=== PATIENT | male | born 1965 | race Caucasian/White ===

== ENCOUNTER 2019-05-03 21:30 | Emergency (ER) | payer SELFPAY ==
[~2019-05-03] VITALS: Ht 172.7 cm; Wt 79.4 kg
[~2019-05-03 21:30] MED LIST: ASPI81CH PO; ATOR40TA PO; CLOP75 PO; METO50ER PO; Nicoderm Cq1 EAC1 TOP
[2019-05-03 22:00] LABS: BASOPHILS ABSOLUTE AUTO 0.07 K/mm3 (0.00-0.23); BASOPHILS PERCENT AUTO 1 % (0-2); EOSINOPHILS ABSOLUTE AUTO 0.21 K/mm3 (0.00-0.68); EOSINOPHILS PERCENT AUTO 2 % (0-6); Hematocrit 46.4 % (37.0-53.0); Hemoglobin 14.7 g/dL (13.5-17.5); IMMATURE GRAN ABSOLUTE AUTO 0.04 K/mm3 (0.00-0.10); IMMATURE GRAN PERCENT AUTO 0 % (0-1); LYMPHOCYTES ABSOLUTE AUTO 2.38 K/mm3 (0.84-5.20); LYMPHOCYTES PERCENT AUTO 21 % (21-46); MONOCYTES ABSOLUTE AUTO 0.77 K/mm3 (0.16-1.47); MONOCYTES PERCENT AUTO 7 % (4-13); Mean Corpuscular HGB Conc 31.7 g/dL (31.5-36.5); Mean Corpuscular Volume 92 fL (80-100); Mean Platelet Volume 11.3 fL (9.1-12.4); NEUTROPHILS ABSOLUTE AUTO 7.64 K/mm3 (1.96-9.15); NEUTROPHILS PERCENT AUTO 69 % (41-73); Platelet Count 242 K/mm3 (150-400); RDW Coefficient Variation 14.6 % (11.7-14.2); RDW Standard Deviation 48.7 fL (35.1-46.3); Red Blood Cell Count 5.07 M/mm3 (4.30-5.90); White Blood Cell Count 11.11 K/mm3 (4.00-11.30)
[2019-05-03 22:38] LABS: Alanine Aminotransfer (ALT/SGP 32 U/L (12-78); Albumin, Blood 3.6 g/dL (3.4-5.0); Albumin/Globulin Ratio 1.1 (0.8-1.8); Alk Phos 93 U/L (50-136); Anion Gap 5 mmol/L (6-16); Aspartate Aminotrans (AST/SGOT 21 U/L (12-37); Bilirubin, Total 0.2 mg/dL (0.1-1.0); Blood Urea Nitrogen 9 mg/dL (8-24); CO2, Blood 28 mmol/L (21-32); Chloride, Blood 109 mmol/L (98-108); Creatinine, Blood 0.75 mg/dL (0.60-1.20); Globulin, Blood 3.3 g/dL (2.2-4.0); Glomerular Filtration Rate >60 (60-); Glucose, Blood 129 mg/dL (70-99); Potassium, Blood 4.3 mmol/L (3.5-5.5); Sodium, Blood 142 mmol/L (136-145); Total Protein, Blood 6.9 g/dL (6.4-8.2)
== END 2019-05-03 23:30 | disposition home or self-care (01) ==
LOC: ER 21:30
PROVIDERS: Emergency Medicine
DX: R41.82 Altered mental status, unspecified (principal); R29.6 Repeated falls; F17.200 Nicotine dependence, unspecified, uncomplicated; Z86.73 Personal history of transient ischemic attack (TIA), and cerebral infarction without residual deficits; Z79.899 Other long term (current) drug therapy; Z79.82 Long term (current) use of aspirin; Z79.02 Long term (current) use of antithrombotics/antiplatelets
CPT/HCPCS: 70450; 80053; 85025; 93005; 93010; 99285-25

== ENCOUNTER 2019-05-10 16:50 | Emergency (ER) | payer MEDICAID ==
[~2019-05-10] VITALS: Ht 172.7 cm; Wt 77.1 kg
[2019-05-10 17:52] LABS: BASOPHILS ABSOLUTE AUTO 0.07 K/mm3 (0.00-0.23); BASOPHILS PERCENT AUTO 1 % (0-2); EOSINOPHILS ABSOLUTE AUTO 0.24 K/mm3 (0.00-0.68); EOSINOPHILS PERCENT AUTO 2 % (0-6); Hematocrit 43.9 % (37.0-53.0); Hemoglobin 14.4 g/dL (13.5-17.5); IMMATURE GRAN ABSOLUTE AUTO 0.06 K/mm3 (0.00-0.10); IMMATURE GRAN PERCENT AUTO 0 % (0-1); LYMPHOCYTES ABSOLUTE AUTO 2.98 K/mm3 (0.84-5.20); LYMPHOCYTES PERCENT AUTO 22 % (21-46); MONOCYTES ABSOLUTE AUTO 1.31 K/mm3 (0.16-1.47); MONOCYTES PERCENT AUTO 10 % (4-13); Mean Corpuscular HGB 29.5 pg (26.0-34.0); Mean Corpuscular HGB Conc 32.8 g/dL (31.5-36.5); Mean Corpuscular Volume 90 fL (80-100); Mean Platelet Volume 10.3 fL (9.1-12.4); NEUTROPHILS ABSOLUTE AUTO 9.08 K/mm3 (1.96-9.15); NEUTROPHILS PERCENT AUTO 66 % (41-73); Platelet Count 233 K/mm3 (150-400); RDW Coefficient Variation 13.8 % (11.7-14.2); RDW Standard Deviation 45.3 fL (35.1-46.3); Red Blood Cell Count 4.88 M/mm3 (4.30-5.90); White Blood Cell Count 13.74 K/mm3 (4.00-11.30)
[2019-05-10 18:16] LABS: Alanine Aminotransfer (ALT/SGP 51 U/L (12-78); Albumin, Blood 3.9 g/dL (3.4-5.0); Albumin/Globulin Ratio 1.2 (0.8-1.8); Alk Phos 98 U/L (50-136); Anion Gap 7 mmol/L (6-16); Aspartate Aminotrans (AST/SGOT 31 U/L (12-37); Bilirubin, Total 0.4 mg/dL (0.1-1.0); Blood Urea Nitrogen 9 mg/dL (8-24); Bun/Creatinine Ratio 11.9 (12.0-20.0); CO2, Blood 26 mmol/L (21-32); Calcium, Blood 8.6 mg/dL (8.5-10.1); Chloride, Blood 104 mmol/L (98-108); Creatinine, Blood 0.76 mg/dL (0.60-1.20); Globulin, Blood 3.2 g/dL (2.2-4.0); Glomerular Filtration Rate >60 (60-); Glucose, Blood 160 mg/dL (70-99); Potassium, Blood 3.6 mmol/L (3.5-5.5); Sodium, Blood 137 mmol/L (136-145); Total Protein, Blood 7.1 g/dL (6.4-8.2)
[2019-05-10 18:39] LABS: Troponin I <0.015 ng/mL (0.000-0.040)
[2019-05-10 18:58] LABS: Thyroid Stimulating Hormone 0.467 uIU/mL (0.360-4.800)
[2019-05-10 21:17] LABS: Source, Urine Clean Catch
[2019-05-10 21:25] LABS: Bilirubin, Urine Neg (Neg); Blood, Urine Neg (Neg); Glucose Qualitative, Urine 4+ (Neg); Ketones, Urine 1+ (Neg); Leukocyte Esterase, Urine 1+ (Neg); Nitrite, Urine Neg (Neg); Protein, Urine 3+ (Neg); Specific Gravity, Urine 1.015 (1.003-1.022); Urobilinogen, Urine NORM (Normal)
[2019-05-10 21:31] LABS: Appearance, Urine Clear (Clear); Bacteria Not Seen /hpf; Color, Urine Yellow (P-Yellow); Red Blood Cells, Urine Not Seen /hpf (0-2); Squamous Epithelial Cells Not Seen /hpf (Few); White Blood Cells, Urine 0-2 /hpf (0-5)
[2019-05-10 21:45] LABS: U Amphetamine Screen Not Detected; U Barbituate Screen Not Detected; U Benzodiazapine Screen DETECTED; U Buprenorphine Screen Not Detected; U Cannabinoids Screen Not Detected; U Cocaine Screen Not Detected; U Methadone Screen Not Detected; U Methamphetamine Screen Not Detected; U Opiates Screen Not Detected; U Oxycodone Screen Not Detected; U Phencyclidine Screen Not Detected; U Propoxyphene Screen Not Detected
== END 2019-05-10 22:52 | disposition home or self-care (01) ==
LOC: ER 16:50
PROVIDERS: Emergency Medicine
DX: S09.90XA Unspecified injury of head, initial encounter (principal); S20.312A Abrasion of left front wall of thorax, initial encounter; S80.212A Abrasion, left knee, initial encounter; E87.8 Other disorders of electrolyte and fluid balance, not elsewhere classified; R29.6 Repeated falls; F17.210 Nicotine dependence, cigarettes, uncomplicated; Z86.73 Personal history of transient ischemic attack (TIA), and cerebral infarction without residual deficits; Z79.899 Other long term (current) drug therapy; Z79.82 Long term (current) use of aspirin; Z79.02 Long term (current) use of antithrombotics/antiplatelets; W19.XXXA Unspecified fall, initial encounter
CPT/HCPCS: 36415; 51702; 70450; 71046; 80053; 81001; 82607; 82746; 84443; 84484; 85025; 87086; 93005; 93010; 99284-25

== ENCOUNTER 2019-05-26 17:48 | Observation (INO) | payer SELFPAY ==
[~2019-05-26] VITALS: Ht 172.7 cm; Wt 83.9 kg
[~2019-05-26 17:48] MED LIST changes: -ASPI81CH PO; +Aspirin EC81 MG PO
[2019-05-26 18:32] LABS: BASOPHILS ABSOLUTE AUTO 0.05 K/mm3 (0.00-0.23); BASOPHILS PERCENT AUTO 1 % (0-2); EOSINOPHILS PERCENT AUTO 2 % (0-6); Hematocrit 44.6 % (37.0-53.0); Hemoglobin 14.3 g/dL (13.5-17.5); IMMATURE GRAN ABSOLUTE AUTO 0.04 K/mm3 (0.00-0.10); IMMATURE GRAN PERCENT AUTO 0 % (0-1); LYMPHOCYTES ABSOLUTE AUTO 2.31 K/mm3 (0.84-5.20); LYMPHOCYTES PERCENT AUTO 25 % (21-46); MONOCYTES ABSOLUTE AUTO 0.66 K/mm3 (0.16-1.47); MONOCYTES PERCENT AUTO 7 % (4-13); Mean Corpuscular HGB 29.3 pg (26.0-34.0); Mean Corpuscular HGB Conc 32.1 g/dL (31.5-36.5); Mean Corpuscular Volume 91 fL (80-100); NEUTROPHILS ABSOLUTE AUTO 6.13 K/mm3 (1.96-9.15); NEUTROPHILS PERCENT AUTO 65 % (41-73); Platelet Count 292 K/mm3 (150-400); RDW Standard Deviation 47.3 fL (35.1-46.3); Red Blood Cell Count 4.88 M/mm3 (4.30-5.90); White Blood Cell Count 9.39 K/mm3 (4.00-11.30)
[2019-05-26 18:51] LABS: Alanine Aminotransfer (ALT/SGP 37 U/L (12-78); Albumin, Blood 3.7 g/dL (3.4-5.0); Alk Phos 102 U/L (50-136); Anion Gap 5 mmol/L (6-16); Aspartate Aminotrans (AST/SGOT 29 U/L (12-37); Bilirubin, Total 0.3 mg/dL (0.1-1.0); Blood Urea Nitrogen 6 mg/dL (8-24); Bun/Creatinine Ratio 8.1 (12.0-20.0); CO2, Blood 27 mmol/L (21-32); Chloride, Blood 109 mmol/L (98-108); Creatinine, Blood 0.74 mg/dL (0.60-1.20); Ethanol (Alcohol), Blood, Med <3 mg/dL; Globulin, Blood 3.7 g/dL (2.2-4.0); Glomerular Filtration Rate >60 (60-); Glucose, Blood 76 mg/dL (70-99); Potassium, Blood 3.9 mmol/L (3.5-5.5); Sodium, Blood 141 mmol/L (136-145); Total Protein, Blood 7.4 g/dL (6.4-8.2)
[2019-05-26 19:52] LABS: PCO2 Arterial 48.2 mmHg (35-45); PO2 Arterial 57.2 mmHg (80-100); pH Blood Arterial 7.34 (7.35-7.45)
[2019-05-26 20:07] LABS: Source, Urine Clean Catch
[2019-05-26 20:10] LABS: Bilirubin, Urine Neg (Neg); Blood, Urine Neg (Neg); Glucose Qualitative, Urine Neg (Neg); Ketones, Urine Neg (Neg); Leukocyte Esterase, Urine Neg (Neg); Nitrite, Urine Neg (Neg); Protein, Urine Neg (Neg); Specific Gravity, Urine 1.005 (1.003-1.022); Urobilinogen, Urine NORM (Normal)
[2019-05-26 20:11] LABS: Appearance, Urine Clear (Clear); Color, Urine Yellow (P-Yellow)
[2019-05-26 20:21] LABS: U Amphetamine Screen Not Detected; U Barbituate Screen Not Detected; U Benzodiazapine Screen DETECTED; U Buprenorphine Screen Not Detected; U Cannabinoids Screen Not Detected; U Cocaine Screen Not Detected; U Methadone Screen DETECTED; U Methamphetamine Screen Not Detected; U Opiates Screen Not Detected; U Oxycodone Screen Not Detected; U Phencyclidine Screen Not Detected; U Propoxyphene Screen Not Detected
[2019-05-26] MEDS ORDERED: ATOR80 PO (20:30)
[2019-05-26] MEDS ORDERED: Nicoderm Cq1 EAC1 TOP (20:31)
[2019-05-26] MEDS ORDERED: [UNRECOGNIZED DRUG - REMARK] (21:18)
[2019-05-26] MEDS ORDERED: METH5 (21:18)
[2019-05-26] MEDS ORDERED: [UNRECOGNIZED DRUG - REMARK] (21:18)
--- NOTE | 2019-05-26 22:31 | NUR ---
Transfer report from Katie CLAIRE on PT with LOC changes who had drug screen positive for Methadone and benzos and tricyclics. PT had minimal responsiveness reported in ER that resolved with romazicon administration. PT had head ct that showed chronic sm vessel disease no acute event. PT will be obs status on Tele monitor. Await admission
--- NOTE | 2019-05-27 00:53 | NUR ---
IV lt forearm patent was placed by EMS and present on admission
[2019-05-27 04:48] LABS: Hematocrit 44.2 % (37.0-53.0); Hemoglobin 13.8 g/dL (13.5-17.5); Mean Corpuscular HGB 28.5 pg (26.0-34.0); Mean Corpuscular HGB Conc 31.2 g/dL (31.5-36.5); Mean Corpuscular Volume 91 fL (80-100); Mean Platelet Volume 9.9 fL (9.1-12.4); Platelet Count 279 K/mm3 (150-400); RDW Standard Deviation 46.9 fL (35.1-46.3); Red Blood Cell Count 4.85 M/mm3 (4.30-5.90); White Blood Cell Count 8.09 K/mm3 (4.00-11.30)
--- NOTE | 2019-05-27 04:56 | NUR ---
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 He was recently in [facility] for TIA and said he has not been able to get rx to treat tia due to no primary care provider. PT was reported to be unresposive in ER to sternal rub and had narcan and 0.5 amp d50 without helpful effect until he was given IV romazicon and became alert. Agitated about NPO status and says he is being tx like a drug addict after cath urine showed positive for methadone and benzo and tricyclics none of which does he have rx for or admit taking. PT states hx of ETOH abuse and hx of chronic pain off narcotics. He is emplyed as a caregiver living with PT with advanced lung cancer. She was admiited and dc from ER when she had difficulty breathing. Full code on tele PT has 3 adult Daughteres ex and Grandson. 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 On room air, PT medicated for co headache with tylenol with helpful effect. On remote camera monitoring verified with Lori due to altered LOC and hx of multiple falls. Bed alarm on, no attempts to get out of bed unassisted. PT had ford cath placed in ER due to AMS and order obtained to dc per PT request but PT has been sleeping ford
[2019-05-27 05:09] LABS: Alanine Aminotransfer (ALT/SGP 39 U/L (12-78); Albumin, Blood 3.2 g/dL (3.4-5.0); Albumin/Globulin Ratio 0.9 (0.8-1.8); Alk Phos 98 U/L (50-136); Anion Gap 5 mmol/L (6-16); Aspartate Aminotrans (AST/SGOT 29 U/L (12-37); Bilirubin, Total 0.2 mg/dL (0.1-1.0); Blood Urea Nitrogen 5 mg/dL (8-24); Bun/Creatinine Ratio 6.6 (12.0-20.0); CO2, Blood 28 mmol/L (21-32); Calcium, Blood 9.1 mg/dL (8.5-10.1); Chloride, Blood 108 mmol/L (98-108); Creatinine, Blood 0.76 mg/dL (0.60-1.20); Globulin, Blood 3.5 g/dL (2.2-4.0); Glomerular Filtration Rate >60 (60-); Glucose, Blood 163 mg/dL (70-99); Potassium, Blood 4.1 mmol/L (3.5-5.5); Sodium, Blood 141 mmol/L (136-145); Total Protein, Blood 6.7 g/dL (6.4-8.2)
[2019-05-27] MEDS ORDERED: ACET325 PO (11:23)
--- NOTE | 2019-05-27 12:07 | NUR ---
DISCHARGE SUMMARY PATIENT AMBULATED SELF OUT OF FACILITY. PROVIDED PACKET FOR ESTABLISHING CARE WITH A PCP AT THE [facility] AT [place]. INSTRUCTED PATIENT TO REMOVE NICOTIENE PATCH IF HE CHOOSES TO SMOKE, ENCOURAGED SMOKING CESSATION. IV REMOVED. PATIENT DRESSED SELF AND AMBULATED SELF OUT OF FACILITY.
== END 2019-05-27 11:56 | disposition home or self-care (01) ==
LOC: ER 17:48 → PCU 17:49 → MEDS 17:50 → PCU 20:08 → ER 20:08 → PCU 22:50 → MEDS 22:50 → ENPENDDIS 05-27 11:22 → MEDS 05-27 11:56
PROVIDERS: Emergency Medicine; ADMIT Internal Medicine
DX: G92 Toxic encephalopathy (principal); R82.5 Elevated urine levels of drugs, medicaments and biological substances; I10 Essential (primary) hypertension; G89.29 Other chronic pain; M19.90 Unspecified osteoarthritis, unspecified site; F17.210 Nicotine dependence, cigarettes, uncomplicated; Z86.73 Personal history of transient ischemic attack (TIA), and cerebral infarction without residual deficits; Z79.82 Long term (current) use of aspirin; Z79.02 Long term (current) use of antithrombotics/antiplatelets; Z79.899 Other long term (current) drug therapy; Z98.1 Arthrodesis status; W19.XXXA Unspecified fall, initial encounter
CPT/HCPCS: 36415; 36600; 51702; 70450; 71045; 80053; 81003; 82140; 82803; 82947; 83735; 85025; 85027; 90686; 93005; 93010; 96374; 96375; 99285-25; A9270; G0480; J1650; J2310; J2405; J7030; J7799

== ENCOUNTER 2019-07-20 12:24 | Emergency (ER) | payer OTHER ==
[~2019-07-20] VITALS: Ht 172.7 cm; Wt 81.7 kg
[~2019-07-20 12:24] MED LIST changes: +ACET325 PO; +ATOR80 PO; +METH5; +[UNRECOGNIZED DRUG - REMARK]; +[UNRECOGNIZED DRUG - REMARK]
[2019-07-20] MEDS ORDERED: ONDA4ODT MM (15:02)
[2019-07-20] MEDS ORDERED: Norco 5-325 Ta1 EACH PO (15:02)
== END 2019-07-20 15:29 | disposition home or self-care (01) ==
LOC: ER 12:24
DX: S06.0X9A Concussion with loss of consciousness of unspecified duration, initial encounter (principal); S92.352A Displaced fracture of fifth metatarsal bone, left foot, initial encounter for closed fracture; S16.1XXA Strain of muscle, fascia and tendon at neck level, initial encounter; Z86.73 Personal history of transient ischemic attack (TIA), and cerebral infarction without residual deficits; Z79.82 Long term (current) use of aspirin; F17.210 Nicotine dependence, cigarettes, uncomplicated; V19.9XXA Pedal cyclist (driver) (passenger) injured in unspecified traffic accident, initial encounter
CPT/HCPCS: 29125; 70450; 72125; 73130; 96361-59; 96374-59; 96375-59; 99284-25; J2405; J3010; J7030

== ENCOUNTER 2019-07-23 18:39 | Emergency (ER) | payer SELFPAY ==
[~2019-07-23] VITALS: Ht 172.7 cm; Wt 81.7 kg
[~2019-07-23 18:39] MED LIST changes: +Norco 5-325 Ta1 EACH PO; +ONDA4ODT MM
== END 2019-07-23 19:53 | disposition left against medical advice (07) ==
LOC: ER 18:39
DX: Z53.21 Procedure and treatment not carried out due to patient leaving prior to being seen by health care provider (principal)

== ENCOUNTER 2019-07-23 20:27 | Emergency (ER) | payer OTHER ==
[~2019-07-23] VITALS: Ht 172.7 cm; Wt 79.8 kg
== END 2019-07-23 22:15 | disposition left against medical advice (07) ==
LOC: ER 20:27
DX: Z53.21 Procedure and treatment not carried out due to patient leaving prior to being seen by health care provider (principal)
CPT/HCPCS: 70450; 99283-25

== ENCOUNTER 2019-07-23 23:25 | Emergency (ER) | payer OTHER ==
[~2019-07-23] VITALS: Ht 172.7 cm; Wt 81.7 kg
[2019-07-24 01:21] LABS: BASOPHILS ABSOLUTE AUTO 0.05 K/mm3 (0.00-0.23); BASOPHILS PERCENT AUTO 1 % (0-2); EOSINOPHILS ABSOLUTE AUTO 0.21 K/mm3 (0.00-0.68); EOSINOPHILS PERCENT AUTO 3 % (0-6); Hematocrit 46.7 % (37.0-53.0); Hemoglobin 14.5 g/dL (13.5-17.5); IMMATURE GRAN ABSOLUTE AUTO 0.01 K/mm3 (0.00-0.10); IMMATURE GRAN PERCENT AUTO 0 % (0-1); LYMPHOCYTES ABSOLUTE AUTO 2.25 K/mm3 (0.84-5.20); LYMPHOCYTES PERCENT AUTO 32 % (21-46); MONOCYTES ABSOLUTE AUTO 0.57 K/mm3 (0.16-1.47); MONOCYTES PERCENT AUTO 8 % (4-13); Mean Corpuscular Volume 93 fL (80-100); Mean Platelet Volume 10.4 fL (9.1-12.4); NEUTROPHILS ABSOLUTE AUTO 4.06 K/mm3 (1.96-9.15); NEUTROPHILS PERCENT AUTO 57 % (41-73); Platelet Count 255 K/mm3 (150-400); RDW Coefficient Variation 15.2 % (11.7-14.2); RDW Standard Deviation 52.5 fL (35.1-46.3); White Blood Cell Count 7.15 K/mm3 (4.00-11.30)
[2019-07-24 01:36] LABS: Acetaminophen, Random <2.0 ug/mL (10.0-30.0); Alanine Aminotransfer (ALT/SGP 31 U/L (12-78); Albumin, Blood 3.7 g/dL (3.4-5.0); Albumin/Globulin Ratio 1.2 (0.8-1.8); Alk Phos 72 U/L (50-136); Anion Gap 6 mmol/L (6-16); Aspartate Aminotrans (AST/SGOT 28 U/L (12-37); Bilirubin, Total 0.2 mg/dL (0.1-1.0); Blood Urea Nitrogen 7 mg/dL (8-24); Bun/Creatinine Ratio 9.7 (12.0-20.0); CO2, Blood 27 mmol/L (21-32); Calcium, Blood 9.3 mg/dL (8.5-10.1); Chloride, Blood 111 mmol/L (98-108); Creatinine, Blood 0.72 mg/dL (0.60-1.20); Ethanol (Alcohol), Blood, Med <3 mg/dL; Globulin, Blood 3.1 g/dL (2.2-4.0); Glomerular Filtration Rate >60 (60-); Glucose, Blood 91 mg/dL (70-99); Potassium, Blood 4.3 mmol/L (3.5-5.5); Salicylate 1.8 mg/dL (2.8-20.0); Sodium, Blood 144 mmol/L (136-145); Total Protein, Blood 6.8 g/dL (6.4-8.2)
[2019-07-24 03:14] LABS: Source, Urine Clean Catch
[2019-07-24 03:17] LABS: Bilirubin, Urine Neg (Neg); Blood, Urine Neg (Neg); Glucose Qualitative, Urine 1+ (Neg); Ketones, Urine Neg (Neg); Leukocyte Esterase, Urine Neg (Neg); Nitrite, Urine Neg (Neg); Protein, Urine Neg (Neg); Urobilinogen, Urine NORM (Normal)
[2019-07-24 03:19] LABS: Appearance, Urine Clear (Clear); Color, Urine Yellow (P-Yellow)
[2019-07-24 03:28] LABS: U Amphetamine Screen Not Detected; U Barbituate Screen Not Detected; U Benzodiazapine Screen DETECTED; U Buprenorphine Screen Not Detected; U Cannabinoids Screen Not Detected; U Cocaine Screen Not Detected; U Methadone Screen Not Detected; U Methamphetamine Screen Not Detected; U Opiates Screen Not Detected; U Oxycodone Screen Not Detected; U Phencyclidine Screen Not Detected; U Propoxyphene Screen Not Detected
== END 2019-07-24 04:17 | disposition home or self-care (01) ==
LOC: ER 23:25
PROVIDERS: Emergency Medicine
DX: S09.90XA Unspecified injury of head, initial encounter (principal); F17.210 Nicotine dependence, cigarettes, uncomplicated; Z79.899 Other long term (current) drug therapy; Z79.82 Long term (current) use of aspirin; V29.40XA Motorcycle driver injured in collision with unspecified motor vehicles in traffic accident, initial encounter
CPT/HCPCS: 36415; 51701; 70450; 80053; 81003; 85025; 96374-59; 99284-25; G0480; J1885

== ENCOUNTER 2021-11-15 11:44 | Emergency (ER) | payer OTHER ==
[~2021-11-15] VITALS: Ht 172.7 cm; Wt 76.2 kg
[2021-11-15 12:37] LABS: BASOPHILS ABSOLUTE AUTO 0.06 K/mm3 (0.00-0.23); BASOPHILS PERCENT AUTO 1 % (0-2); EOSINOPHILS ABSOLUTE AUTO 0.18 K/mm3 (0.00-0.68); EOSINOPHILS PERCENT AUTO 2 % (0-6); Hemoglobin 13.9 g/dL (13.5-17.5); IMMATURE GRAN ABSOLUTE AUTO 0.03 K/mm3 (0.00-0.10); IMMATURE GRAN PERCENT AUTO 0 % (0-1); LYMPHOCYTES ABSOLUTE AUTO 2.46 K/mm3 (0.84-5.20); LYMPHOCYTES PERCENT AUTO 27 % (21-46); MONOCYTES ABSOLUTE AUTO 0.81 K/mm3 (0.16-1.47); MONOCYTES PERCENT AUTO 9 % (4-13); Mean Corpuscular HGB 30.8 pg (26.0-34.0); Mean Corpuscular HGB Conc 33.1 g/dL (31.5-36.5); Mean Corpuscular Volume 93 fL (80-100); Mean Platelet Volume 10.2 fL (9.1-12.4); NEUTROPHILS ABSOLUTE AUTO 5.59 K/mm3 (1.96-9.15); NEUTROPHILS PERCENT AUTO 61 % (41-73); Platelet Count 215 K/mm3 (150-400); RDW Coefficient Variation 13.8 % (11.7-14.2); RDW Standard Deviation 47.3 fL (35.1-46.3); Red Blood Cell Count 4.52 M/mm3 (4.30-5.90); White Blood Cell Count 9.13 K/mm3 (4.00-11.30)
[2021-11-15 13:04] LABS: Alanine Aminotransfer (ALT/SGP 44 U/L (12-78); Albumin/Globulin Ratio 1.3 (0.8-1.8); Alk Phos 69 U/L (50-136); Anion Gap 6 mmol/L (6-16); Aspartate Aminotrans (AST/SGOT 26 U/L (12-37); Bilirubin, Total 0.3 mg/dL (0.1-1.0); Blood Urea Nitrogen 9 mg/dL (8-24); Bun/Creatinine Ratio 15.9 (12.0-20.0); CO2, Blood 25 mmol/L (21-32); Calcium, Blood 9.1 mg/dL (8.5-10.1); Chloride, Blood 109 mmol/L (98-108); Creatinine, Blood 0.57 mg/dL (0.60-1.20); Glomerular Filtration Rate >60 (60-); Glucose, Blood 111 mg/dL (70-99); Potassium, Blood 3.8 mmol/L (3.5-5.5); Sodium, Blood 140 mmol/L (136-145)
[2021-11-15 13:18] LABS: Source, Urine Clean Catch
[2021-11-15 13:22] LABS: Appearance, Urine Clear (Clear); Bilirubin, Urine Neg (Neg); Blood, Urine Neg (Neg); Color, Urine Yellow (P-Yellow); Glucose Qualitative, Urine Neg (Neg); Ketones, Urine 1+ (Neg); Leukocyte Esterase, Urine Neg (Neg); Nitrite, Urine Neg (Neg); Protein, Urine Neg (Neg); Specific Gravity, Urine 1.015 (1.003-1.022); Urobilinogen, Urine NORM (Normal)
[2021-11-15] MEDS ORDERED: AMOCLA875 PO (16:53)
[2021-11-15] MEDS ORDERED: Percocet 5-3251 EACH PO (16:53)
== END 2021-11-15 17:00 | disposition home or self-care (01) ==
LOC: ER 11:44
PROVIDERS: Physician Assistant
DX: K57.32 Diverticulitis of large intestine without perforation or abscess without bleeding (principal); I71.4 Abdominal aortic aneurysm, without rupture; F17.210 Nicotine dependence, cigarettes, uncomplicated; Z86.73 Personal history of transient ischemic attack (TIA), and cerebral infarction without residual deficits; Z79.82 Long term (current) use of aspirin
CPT/HCPCS: 36415; 71260; 74177; 80053; 81003; 83690; 84484; 85025; A9270; J2270; J2405; J7030; Q9967

== ENCOUNTER → 2022-01-19 | Outpatient (CLI) | payer OTHER ==
[~2022-01-19] MED LIST changes: +AMOCLA875 PO; +Percocet 5-3251 EACH PO
== END | disposition home or self-care (01) ==
LOC: LAB SHORT 17:46 → LAB 17:46
DX: M79.89 Other specified soft tissue disorders (principal); L72.3 Sebaceous cyst
CPT/HCPCS: 87070; 87205

== ENCOUNTER 2022-03-05 16:38 | Emergency (ER) | payer OTHER ==
[~2022-03-05] VITALS: Ht 172.7 cm; Wt 81.7 kg
[2022-03-05 18:17] LABS: Source, Urine Clean Catch
[2022-03-05 18:20] LABS: BASOPHILS ABSOLUTE AUTO 0.04 K/mm3 (0.00-0.23); BASOPHILS PERCENT AUTO 1 % (0-2); EOSINOPHILS ABSOLUTE AUTO 0.07 K/mm3 (0.00-0.68); EOSINOPHILS PERCENT AUTO 1 % (0-6); Hematocrit 48.6 % (37.0-53.0); Hemoglobin 15.9 g/dL (13.5-17.5); IMMATURE GRAN ABSOLUTE AUTO 0.02 K/mm3 (0.00-0.10); IMMATURE GRAN PERCENT AUTO 0 % (0-1); LYMPHOCYTES ABSOLUTE AUTO 0.77 K/mm3 (0.84-5.20); LYMPHOCYTES PERCENT AUTO 11 % (21-46); MONOCYTES ABSOLUTE AUTO 1.19 K/mm3 (0.16-1.47); MONOCYTES PERCENT AUTO 17 % (4-13); Mean Corpuscular HGB 30.1 pg (26.0-34.0); Mean Corpuscular HGB Conc 32.7 g/dL (31.5-36.5); Mean Corpuscular Volume 92 fL (80-100); Mean Platelet Volume 10.4 fL (9.1-12.4); NEUTROPHILS ABSOLUTE AUTO 5.07 K/mm3 (1.96-9.15); NEUTROPHILS PERCENT AUTO 71 % (41-73); Platelet Count 202 K/mm3 (150-400); RDW Coefficient Variation 13.2 % (11.7-14.2); RDW Standard Deviation 44.6 fL (35.1-46.3); Red Blood Cell Count 5.28 M/mm3 (4.30-5.90); White Blood Cell Count 7.16 K/mm3 (4.00-11.30)
[2022-03-05 18:21] LABS: Appearance, Urine Hazy (Clear); Bilirubin, Urine Neg (Neg); Blood, Urine 5+ (Neg); Color, Urine Yellow (P-Yellow); Glucose Qualitative, Urine Neg (Neg); Ketones, Urine Neg (Neg); Leukocyte Esterase, Urine 3+ (Neg); Nitrite, Urine Neg (Neg); Protein, Urine 2+ (Neg); Urobilinogen, Urine NORM (Normal)
[2022-03-05 18:31] LABS: Albumin, Blood 4.4 g/dL (3.4-5.0); Albumin/Globulin Ratio 1.2 (0.8-1.8); Bilirubin, Total 0.2 mg/dL (0.1-1.0); Bun/Creatinine Ratio 10.9 (12.0-20.0); Calcium, Blood 9.7 mg/dL (8.5-10.1); Creatinine, Blood 0.73 mg/dL (0.60-1.20); Globulin, Blood 3.7 g/dL (2.2-4.0); Potassium, Blood 4.1 mmol/L (3.5-5.5); Total Protein, Blood 8.1 g/dL (6.4-8.2)
[2022-03-05 18:33] LABS: Red Blood Cells, Urine 25-50 /hpf (0-2); White Blood Cells, Urine 50-100 /hpf (0-5)
[2022-03-05 18:34] LABS: Mucus Light (0-Heavy); Squamous Epithelial Cells Rare /hpf (Few)
[2022-03-05 18:35] LABS: Bacteria Mod /hpf
[2022-03-05 18:36] LABS: Hyaline Casts 0-2 /lpf (0-2)
[2022-03-05] MEDS ORDERED: TIZA4 (19:42)
[2022-03-05] MEDS ORDERED: GABA100 (19:42)
[2022-03-05] MEDS ORDERED: BUSP5 (19:42)
[2022-03-05] MEDS ORDERED: LORA.5 (19:42)
[2022-03-05] MEDS ORDERED: Bactrim Ds Tab1 EACH PO (22:15)
== END 2022-03-05 22:31 | disposition home or self-care (01) ==
LOC: ER 16:38
PROVIDERS: Physician Assistant
DX: M54.50 Low back pain, unspecified (principal); G89.29 Other chronic pain; N39.0 Urinary tract infection, site not specified; G43.909 Migraine, unspecified, not intractable, without status migrainosus; F17.210 Nicotine dependence, cigarettes, uncomplicated; Z79.899 Other long term (current) drug therapy; Z79.82 Long term (current) use of aspirin; Z86.73 Personal history of transient ischemic attack (TIA), and cerebral infarction without residual deficits
CPT/HCPCS: 36415; 74176; 80053; 81001; 83690; 85025; 87086; A9270; J1790; J1885; J2405; J7030

== ENCOUNTER → 2022-03-10 | Outpatient (CLI) | payer OTHER | END | disposition home or self-care (01) | LOC: LAB SHORT 13:41 | DX: R07.9 Chest pain, unspecified (principal) ==

== ENCOUNTER 2022-03-19 09:05 | Inpatient (IN) | payer OTHER ==
[~2022-03-19] VITALS: Ht 172.7 cm; Wt 80.7 kg
[~2022-03-19 09:05] MED LIST changes: +BUSP5; +Bactrim Ds Tab1 EACH PO; +GABA100; +LORA.5; +TIZA4
[2022-03-19 10:19] LABS: BASOPHILS ABSOLUTE AUTO 0.05 K/mm3 (0.00-0.23); BASOPHILS PERCENT AUTO 0 % (0-2); EOSINOPHILS ABSOLUTE AUTO 0.07 K/mm3 (0.00-0.68); EOSINOPHILS PERCENT AUTO 0 % (0-6); Hematocrit 48.1 % (37.0-53.0); Hemoglobin 16.3 g/dL (13.5-17.5); IMMATURE GRAN ABSOLUTE AUTO 0.05 K/mm3 (0.00-0.10); IMMATURE GRAN PERCENT AUTO 0 % (0-1); LYMPHOCYTES ABSOLUTE AUTO 1.54 K/mm3 (0.84-5.20); LYMPHOCYTES PERCENT AUTO 10 % (21-46); MONOCYTES ABSOLUTE AUTO 1.24 K/mm3 (0.16-1.47); MONOCYTES PERCENT AUTO 8 % (4-13); Mean Corpuscular HGB 30.3 pg (26.0-34.0); Mean Corpuscular HGB Conc 33.9 g/dL (31.5-36.5); Mean Corpuscular Volume 89 fL (80-100); Mean Platelet Volume 10.6 fL (9.1-12.4); NEUTROPHILS ABSOLUTE AUTO 13.09 K/mm3 (1.96-9.15); NEUTROPHILS PERCENT AUTO 82 % (41-73); Platelet Count 289 K/mm3 (150-400); RDW Coefficient Variation 13.3 % (11.7-14.2); RDW Standard Deviation 42.8 fL (35.1-46.3); Red Blood Cell Count 5.38 M/mm3 (4.30-5.90); White Blood Cell Count 16.04 K/mm3 (4.00-11.30)
[2022-03-19 10:30] LABS: Albumin, Blood 4.5 g/dL (3.4-5.0); Albumin/Globulin Ratio 1.1 (0.8-1.8); Bilirubin, Total 0.7 mg/dL (0.1-1.0); Bun/Creatinine Ratio 19.8 (12.0-20.0); Calcium, Blood 9.7 mg/dL (8.5-10.1); Creatinine, Blood 0.76 mg/dL (0.60-1.20); Globulin, Blood 4.1 g/dL (2.2-4.0); Potassium, Blood 3.7 mmol/L (3.5-5.5); Total Protein, Blood 8.6 g/dL (6.4-8.2)
[2022-03-19] MEDS ORDERED: LOSA50 PO (17:02)
--- NOTE | 2022-03-19 18:22 | NUR ---
SHIFT SUMMARY PT ADMITTED FROM ED FOR SBO. NG TUBE IN PLACE AND PT REPORTS THAT HIS ABD PRESSURE HAS IMPROVED QUITE A BIT. TREATED FOR PAIN PER EMR. NO C/O NAUSEA/VOMITTING. PT NPO. VSS.
--- NOTE | 2022-03-19 22:00 | NUR ---
PT REP NGT DISLODGED WHILE HE WAS SNEEZING. TUBE FOUND TO BE BARELY IN PT'S NOSE. TUBE REMOVED. PT DECLINING NEW TUBE TO BE PLACED. PT DENIED N/V. PT EDUCATED ON REASON FOR NGT AND TO CALL IF HE HAS N/V OR IF ABD FEELS MORE DISTENDED. PT VERBALIZED UNDERSTANDING.
[2022-03-20 04:27] LABS: BASOPHILS ABSOLUTE AUTO 0.03 K/mm3 (0.00-0.23); BASOPHILS PERCENT AUTO 0 % (0-2); EOSINOPHILS PERCENT AUTO 1 % (0-6); Hematocrit 40.9 % (37.0-53.0); Hemoglobin 13.4 g/dL (13.5-17.5); IMMATURE GRAN ABSOLUTE AUTO 0.01 K/mm3 (0.00-0.10); IMMATURE GRAN PERCENT AUTO 0 % (0-1); LYMPHOCYTES PERCENT AUTO 26 % (21-46); MONOCYTES ABSOLUTE AUTO 0.79 K/mm3 (0.16-1.47); MONOCYTES PERCENT AUTO 10 % (4-13); Mean Corpuscular HGB 30.2 pg (26.0-34.0); Mean Corpuscular HGB Conc 32.8 g/dL (31.5-36.5); Mean Corpuscular Volume 92 fL (80-100); Mean Platelet Volume 10.4 fL (9.1-12.4); NEUTROPHILS ABSOLUTE AUTO 5.13 K/mm3 (1.96-9.15); NEUTROPHILS PERCENT AUTO 63 % (41-73); Platelet Count 218 K/mm3 (150-400); RDW Coefficient Variation 13.5 % (11.7-14.2); RDW Standard Deviation 44.4 fL (35.1-46.3); Red Blood Cell Count 4.44 M/mm3 (4.30-5.90); White Blood Cell Count 8.16 K/mm3 (4.00-11.30)
[2022-03-20 04:44] LABS: Bun/Creatinine Ratio 19.5 (12.0-20.0); Creatinine, Blood 0.72 mg/dL (0.60-1.20); Magnesium, Blood 2.3 mg/dL (1.6-2.4); Potassium, Blood 3.6 mmol/L (3.5-5.5)
--- NOTE | 2022-03-20 05:09 | NUR ---
PT VSS T/O NIGHT. NGT DISLODGED APPX 2200, PT DENIED N/V, NO CHANGES IN ABD DISTENTION. BT ACTIVE, PT REP ABD CRAMPING, IS NOT PASSING FLATUS. PAIN MGD PER EMAR W/ REP RELIEF. PT NPO, IVF CONT PER ORDERS. PT INDEP IN ROOM, USING CALL LIGHT FOR ASSISTANCE.
--- NOTE | 2022-03-20 10:16 | NUR ---
YYASSUMED CARE OF PT, C/O 04/01 ABD PAIN, MEDICATED PER EMAR, DENIES ANY N/V, ABD MODERATELY DISTENDED, HYPOACTIVE BT'S X4, ABD SOFT, REPORTS FEELING "FULL OF AIR" DENIES PASSING FLATUS AT THIS TIME, CONT. TO MONITOR FOR ANY CHANGES.
--- NOTE | 2022-03-20 17:59 | NUR ---
SUMMARY PT REPORTS PASSING FLATUS X2 TODAY, DENIES ANY NAUSEA, CONT. TO HAVE ABD PAIN, REPORTS PAIN IS TOLERABLE WITH IV DILAUDID, AMBULATED DOWN THE HALLS, INDEPENDENT TO THE BATHROOM, NO ACUTE CHANGES THIS SHIFT.
--- NOTE | 2022-03-21 04:01 | NUR ---
SHIFT SUMMARY PT CONT TO C/O SHARP CRAMPING ABD PAIN T/O NIGHT. HE REPORTS ACTIVE FLATUS AND DID HAVE X1 SMALL FORMED BM TONIGHT, BUT STATES THE PAIN IS NOT IMPROVING. 0.5MG IV DILAUDID + TORADOL FOR PAIN MANAGEMENT. PT NPO WITH IVF INFUSING PER ORDERS. DENIES N/V. INDEP TO RESTROOM. USES CALL LIGHT APPROPRIATELY.
--- NOTE | 2022-03-21 17:48 | NUR ---
SUMMARY CONT. TO HAVE ABD PAIN TODAY, STATES PAIN SEEMS WORSE THIS AM WITH INTERMITTEND AND CRAMPY PAIN, CONT. TO TAKE IV DILAUDID 0.5 EVERY 2 HRS ORDERED PRN, C/O NAUSEA AFTER PAIN MEDS GIVEN THEN SUBSIDES, REPORTS HAVING 2 LOOSE BM'S TODAY AND PASSING FLATUS, STARTED ON SIPS OF CLEARS, SANJAY FAIRLY WELL, BP ELEVATED TODAY, STARTED ON HOME DOSE OF [place], PT AMBULATED IN ROOM AND SAT IN CHAIR TODAY, REFUSED TO AMBULATE DOWN THE HALLS TODAY, NO OTHER CHANGES NOTED THIS SHIFT.
--- NOTE | 2022-03-22 03:37 | NUR ---
SHIFT SUMMARY AOX4, INDEP IN ROOM. ADMITTED FOR SBO, REPORTS MULTIPLE BMS THIS SHIFT. BOWEL SOUNDS ACTVIE IN ALL QUADRANTS. DENIES N/V. TOLERATING SIPS OF CLEARS. MEDICATED FOR PAIN WITH 0.5MG DILAUDED AND TORADOL. REPORTED PAIN CONTROL ON REASSESSMENT.VSS. CALL LIGHT IN REACH. WILL REPORT TO DAY RN.
[2022-03-22 05:24] LABS: BASOPHILS ABSOLUTE AUTO 0.02 K/mm3 (0.00-0.23); BASOPHILS PERCENT AUTO 0 % (0-2); EOSINOPHILS PERCENT AUTO 1 % (0-6); Hemoglobin 12.3 g/dL (13.5-17.5); IMMATURE GRAN ABSOLUTE AUTO 0.01 K/mm3 (0.00-0.10); IMMATURE GRAN PERCENT AUTO 0 % (0-1); LYMPHOCYTES ABSOLUTE AUTO 1.42 K/mm3 (0.84-5.20); LYMPHOCYTES PERCENT AUTO 21 % (21-46); MONOCYTES ABSOLUTE AUTO 0.79 K/mm3 (0.16-1.47); MONOCYTES PERCENT AUTO 11 % (4-13); Mean Corpuscular HGB Conc 33.2 g/dL (31.5-36.5); Mean Corpuscular Volume 90 fL (80-100); NEUTROPHILS ABSOLUTE AUTO 4.58 K/mm3 (1.96-9.15); NEUTROPHILS PERCENT AUTO 66 % (41-73); Platelet Count 192 K/mm3 (150-400); RDW Coefficient Variation 13.2 % (11.7-14.2); RDW Standard Deviation 42.3 fL (35.1-46.3); White Blood Cell Count 6.92 K/mm3 (4.00-11.30)
[2022-03-22 06:17] LABS: Bun/Creatinine Ratio 16.7 (12.0-20.0); Calcium, Blood 8.1 mg/dL (8.5-10.1); Creatinine, Blood 0.6 mg/dL (0.60-1.20); Potassium, Blood 3.7 mmol/L (3.5-5.5)
--- NOTE | 2022-03-22 19:15 | NUR ---
SHIFT SUMMARY PT HAS DONE WELL TODAY. CONT's TO C/O CRAMPING ABD PAIN BUT MANAGED w/ TORADOL & DILAUDID. UP IN ROOM & REPORTS FEELING IMPROVED FROM DAYS PRIOR.
--- NOTE | 2022-03-23 05:34 | NUR ---
SHIFT SUMMARY ASSUMED CARE OF PATIENT AROUND 0030, MEDICATED FOR PAIN PER EMAR. VOIDING INDEPENDENTLY. USES CALL LIGHT APPROPRIATELY, CALL LIGHT WITHIN REACH.
--- NOTE | 2022-03-23 10:42 | NUR ---
DISCHARGE PT DISCHARGED HOME FROM UNIT AT APROX 1042. PT GIVEN WRITTEN AND VERBAL DC INSTRUCTIONS AND VERBALIZED UNDERSTANDING OF THESE INSTRUCTIONS. IV REMOVED. DECLINED WC TO CAR, AMBULATED INDEPENDENTLY.
== END 2022-03-23 10:43 | disposition home or self-care (01) | DRG 390 ==
LOC: ER 09:05 → SURS 09:06
PROVIDERS: Emergency Medicine; Surgery; ADMIT Surgery
DX: K56.609 Unspecified intestinal obstruction, unspecified as to partial versus complete obstruction (principal); E78.5 Hyperlipidemia, unspecified; I10 Essential (primary) hypertension; Z98.890 Other specified postprocedural states; Z79.82 Long term (current) use of aspirin; Z79.899 Other long term (current) drug therapy; Z86.73 Personal history of transient ischemic attack (TIA), and cerebral infarction without residual deficits; F17.210 Nicotine dependence, cigarettes, uncomplicated
CPT/HCPCS: 36415; 71045; 74174; 80048; 80053; 83690; 83735; 85025; 93005; 93010; 96374; 96375; 96376; 99285-25; A9270; J1170; J1885; J2405; J7120; Q9967